=== PATIENT | female | born 1950 | race Caucasian/White ===

== ENCOUNTER 2017-05-19 11:29 | Day surgery (SDC) | payer MEDICARE, OTHER ==
[~2017-05-19] VITALS: Ht 160 cm; Wt 53.8 kg
--- NOTE | ~2017-05-19 | OR ---
PATIENT'S NAME: CLAUDIA CARTER [facility] AGE: 66 Y [address] ROOM: [place] [address] [place] [facility] [place]: 05/19/[place] OR/Procedure Report DISCHARGE DATE: FAMILY PHYSICIAN: Joseph Collier MD ATTENDING PHYSICIAN: Tova Villalta SURGEON: Tova Villalta MD BRAKESHOE REPAIRER: DATE OF PROCEDURE: 05/19/2017 PREOPERATIVE DIAGNOSIS: Stress urinary incontinence. POSTOPERATIVE DIAGNOSIS: Stress urinary incontinence. PROCEDURE PERFORMED: Mid urethral suspension. ANESTHESIA: Spinal. COMPLICATIONS: None. ESTIMATED BLOOD LOSS: 150 mL. INDICATIONS FOR PROCEDURE: The patient is a 66-year-old female complaining of stress urinary incontinence with walking, lifting, laughing, sneezing, and climbing stairs. The patient tried Kegel exercise without improvement. She wears 3 to 4 heavy pads a day and sometimes up to 12 pads a day. DETAILS OF PROCEDURE: After informed consent was obtained, the patient was taken to the operating room. A spinal anesthetic was applied. She was placed in the dorsal lithotomy position. The lower abdomen and groin area were prepped and draped in normal sterile fashion. A 20-Portuguese Begum catheter was placed. Next, two small skin incisions were made over the pubic bone bilaterally. Next, vasopressin was injected into the anterior vaginal wall. A T-incision was then made in the anterior vaginal wall with a #15 scalpel blade and scissors. I then used the scissors and Celestina clamps to dissect the space into the endopelvic space bilaterally. Next, the needles were passed through the abdominal incision and out at the anterior vaginal wall bilaterally. Cystoscopy was then performed which demonstrated the needles had not penetrated the bladder wall bilaterally. Begum catheter was replaced and the bladder drained. Next, the mesh was attached to the end of each needle and pulled through. Following this, the patient did experience increasing bleeding from the endopelvic space. Heavy curved scissors were used as spacing device. The sheath was then cut and pulled through, locking the tape in position. The excess was excised at the abdominal wall. The abdominal incision was Steri-Stripped. I then injected FloSeal into the endopelvic space bilaterally which controlled the bleeding nicely. The anterior vaginal PATIENT'S NAME: CLAUDIA CARTER [facility] AGE: 66 Y [address] ROOM: [place] [address] [place] [facility] [place]: 05/19/2017 OR/Procedure Report DISCHARGE DATE: FAMILY PHYSICIAN: Joseph Collier MD ATTENDING PHYSICIAN: Tova Villalta wall was then closed with a running interlocking 2-0 Vicryl suture. The remainder incision was closed with interrupted 2-0 Vicryl suture. The wound was then packed with vaginal packing soaked in Silvadene cream. The patient tolerated her procedure well and was transferred to the recovery room in good condition. MD TABITHA HANSON/art /[id number] CC: LEOBARDO Ham MD d: 05/19/17 2146 t: 06/07/17 1157, OPERATIVE SUMMARY
[~2017-05-19 11:29] MED LIST: ASPIRIN EC81 MG PO; ATIVAN 0.5MG0.5 MG PO; CLIMARA0.05 MG TOP; DOXYCYCLINE HYC50 M1 PO; LOPRESSOR50 MG PO; NORCO 10-325 T1 EACH PO; NORVASC5 MG PO; PRILOSEC20 MG PO; PRINIVIL OR ZES10 MG PO; ZOCOR20 M1 PO
[2017-05-19 12:29] LABS: BASOPHIL # 0.1 K/uL (0.0-0.2); BASOPHIL % 0.5 %; EOSINOPHIL # 0.6 K/uL (0.0-0.5); EOSINOPHIL % 4.1 %; HEMATOCRIT 45.7 % (33.0-46.0); HEMOGLOBIN 15.6 g/dL (10.0-15.0); IMMATURE GRANULOCYTE # 0.1 K/uL (0.0-0.3); IMMATURE GRANULOCYTE % 0.5 %; LYMPHOCYTE # 3.6 K/uL (0.8-4.0); LYMPHOCYTE % 26.2 %; MCH 33.4 pg (27.0-34.0); MCHC 34.1 gm/dL (32.0-36.5); MCV 97.9 fl (83.0-98.0); MONOCYTE # 1.4 K/uL (0.0-1.0); MONOCYTE % 9.9 %; MPV 8.8 fl (9.4-12.4); NEUTROPHIL # (ANC) 8.2 K/uL (1.8-7.8); NEUTROPHIL % 58.8 %; NRBC % 0 /100WBC (0-0.00); PLATELET COUNT 242 K/uL (150-450); RBC 4.67 M/uL (3.50-5.50); RDW-CV 12.5 % (11.9-14.6); WBC 13.9 K/uL (4.0-11.0)
[2017-05-19 12:41] LABS: ALBUMIN 3.8 gm/dL (3.5-5.0); ALK PHOS 60 IU/L (33-138); ALT 20 IU/L (12-78); ANION GAP 13.3 (10.0-19.0); AST 16 IU/L (10-40); BLOOD UREA NITROGEN 9 mg/dL (6-24); CHLORIDE 98 mMol/L (96-110); CO2 26 mMol/L (22-32); CREATININE 0.7 mg/dL (0.5-1.1); POTASSIUM 4.3 mMol/L (3.7-5.1); SODIUM 133 mMol/L (135-145); TOTAL BILIRUBIN 0.4 mg/dL (0.0-1.5); TOTAL PROTEIN 6.8 g/dL (6.0-8.4)
[2017-05-20 04:54] LABS: BASOPHIL # 0.1 K/uL (0.0-0.2); BASOPHIL % 0.4 %; EOSINOPHIL # 0.5 K/uL (0.0-0.5); EOSINOPHIL % 4.1 %; HEMATOCRIT 40.5 % (33.0-46.0); HEMOGLOBIN 13.8 g/dL (10.0-15.0); IMMATURE GRANULOCYTE # 0.1 K/uL (0.0-0.3); IMMATURE GRANULOCYTE % 0.8 %; LYMPHOCYTE # 2.8 K/uL (0.8-4.0); LYMPHOCYTE % 21.6 %; MCH 33.6 pg (27.0-34.0); MCHC 34.1 gm/dL (32.0-36.5); MCV 98.5 fl (83.0-98.0); MONOCYTE # 1.5 K/uL (0.0-1.0); MONOCYTE % 11.7 %; MPV 8.8 fl (9.4-12.4); NEUTROPHIL # (ANC) 7.9 K/uL (1.8-7.8); NEUTROPHIL % 61.4 %; NRBC % 0 /100WBC (0-0.00); PLATELET COUNT 201 K/uL (150-450); RBC 4.11 M/uL (3.50-5.50); RDW-CV 12.5 % (11.9-14.6); WBC 12.9 K/uL (4.0-11.0)
[2017-05-20] MEDS ORDERED: LEVAQUIN250 MG PO (12:59)
== END 2017-05-20 13:25 | disposition disaster alternative care site (69) ==
LOC: GMSU 11:29 → GPOC 11:29 → GMSU 13:57 → GPOC 05-20 13:25
PROVIDERS: Urology
PROC: 0TSC0ZZ Reposition Bladder Neck, Open Approach (ICD-10-PCS; principal; 2017-05-19)
DX: N39.3 Stress incontinence (female) (male) (principal); I11.9 Hypertensive heart disease without heart failure; E78.5 Hyperlipidemia, unspecified; J44.9 Chronic obstructive pulmonary disease, unspecified; F41.9 Anxiety disorder, unspecified; Z88.0 Allergy status to penicillin; F17.200 Nicotine dependence, unspecified, uncomplicated; Z87.19 Personal history of other diseases of the digestive system; Z90.710 Acquired absence of both cervix and uterus; Z79.899 Other long term (current) drug therapy; Z98.890 Other specified postprocedural states
CPT/HCPCS: A9270; C1771; J1580; J1956; J2001; J7120